=== PATIENT | male | born 1975 | race African-American/Black ===

== ENCOUNTER 2017-07-22 18:49 | Inpatient (IN) ==
[2017-07-22] MEDS ORDERED: MORPHINE 2 MG/1 ML SYRINGE IV STA (20:46)
[2017-07-22] MEDS ORDERED: hydrALAZINE 20 MG/1 ML VIAL IV STA (20:46)
[2017-07-22] MEDS ORDERED: NITROGLYCERIN 2% OINT 1 INCH/GM PACK TOP STA (20:46)
[2017-07-22] MEDS ORDERED: ONDANSETRON 4 MG/2 ML VIAL IV STA (20:46)
[2017-07-22] MEDS ORDERED: ALBUTEROL/IPRATROPIUM 3 ML NEB RESP TX STA (20:46)
[2017-07-22] MEDS ORDERED: ASPIRIN 325 MG TABLET PO STA (20:46)
[2017-07-22] MEDS ORDERED: FUROSEMIDE 100 MG/10 ML VIAL IV STA (20:46)
[2017-07-22] MEDS ORDERED: methylPREDNISolone SOD SUC 125 MG/2 ML VIAL IV STA (20:46)
[2017-07-22 20:55] LABS: Basophils % 0.2 % (0.0-0.8); Eosinophils # 0.1 10*3/uL (0.0-0.87); Eosinophils % 0.9 % (0.00-10.9); Hematocrit 40.3 VOL% (42.0-52.0); Hemoglobin 13.1 GM/DL (14.0-18.0); Immature Granulocytes % 0.4 %; Immature Granulocytes Absolute 0.04 #; Lymphocytes # 1.7 10*3/uL (1.4-4.0); Mean Corpuscular HGB Conc 32.5 GM/DL (32-36); Mean Corpuscular Hemoglobin 23 PG (27-34); Mean Corpuscular Volume 71.7 FL (87-102); Mean Platelet Volume 11.4 FL (9.6-12.0); Monocytes # 0.7 10*3/uL (0.11-0.8); Monocytes % 7.1 % (1.7-12.7); Neutrophils # 7.9 10*3/uL (1.4-7.4); Neutrophils % 75.4 % (38.7-73.9); Platelet Count 320 T/CUMM (130-400); Red Blood Count 5.62 MC/CUMM (3.8-5.5); Red Cell Distribution Width 15.3 % (9.3-17.3); White Blood Count 10.5 T/CUMM (4-12)
[2017-07-22] MEDS ORDERED: FUROSEMIDE 20 MG/2 ML VIAL ONE (21:01)
[2017-07-22] MEDS ORDERED: hydrALAZINE 20 MG/1 ML VIAL ONE (21:01)
[2017-07-22] MEDS ORDERED: FUROSEMIDE 40 MG/4 ML VIAL ONE (21:01)
[2017-07-22] MEDS ORDERED: MORPHINE 10 MG/1 ML VIAL ONE (21:01)
[2017-07-22] MEDS ORDERED: NITROGLYCERIN 2% OINT 1 INCH/GM PACK TOP ONE (21:01)
[2017-07-22] MEDS ORDERED: ONDANSETRON 4 MG/2 ML VIAL ONE (21:01)
[2017-07-22] MEDS ORDERED: methylPREDNISolone SOD SUC 125 MG/2 ML VIAL ONE (21:02)
[2017-07-22] MEDS ORDERED: ASPIRIN 325 MG TABLET ONE (21:02)
[2017-07-22 21:14] LABS: Albumin 3.1 G/DL (3.4-5.0); Bilirubin,Total 1.5 MG/DL (0.2-1.0); Calcium 8.9 MG/DL (8.5-10.1); Potassium 3.8 MMOL/L (3.5-5.1); Total Protein 6.1 G/DL (6.4-8.3)
[2017-07-22 21:15] LABS: Troponin I Only 0.049 NG/ML (0.00-0.045)
[2017-07-22] MEDS ORDERED: INSULIN REGULAR 100 UNIT/ML SUBCUT STA (21:41)
[2017-07-22] MEDS ORDERED: MAGNESIUM SULF RIDER 2 GM in PREMIX 1 EACH IV STA (22:02)
[2017-07-22] MEDS ORDERED: LABETALOL 100 MG/20 ML VIAL IV PRN (22:58)
[2017-07-22] MEDS ORDERED: DEXTROSE 50% 25 GM/50 ML VIAL IV PRN (22:58)
[2017-07-22] MEDS ORDERED: GLUCAGON 1 MG VIAL IM PRN (22:58)
[2017-07-22] MEDS ORDERED: ONDANSETRON 4 MG/2 ML VIAL IV PRN (22:58)
[2017-07-22] MEDS ORDERED: MAGNESIUM SULF RIDER 50 ML IV ONE (23:05)
[2017-07-22] MEDS ORDERED: INSULIN REGULAR 100 UNIT/ML ONE (23:06)
[2017-07-22] MEDS ORDERED: LABETALOL 20 MG/4 ML SYRINGE IV PRN (23:45)
[2017-07-23] MEDS: ENOXAPARIN 40 MG/0.4 ML SYRINGE SUBCUT SCH ×3 (00:55→21:26)
[2017-07-23] MEDS ORDERED: ENOXAPARIN 40 MG/0.4 ML SYRINGE ONE (00:58)
[2017-07-23] MEDS ORDERED: GLUCAGON 1 MG VIAL IM PRN (01:38)
[2017-07-23] MEDS ORDERED: DEXTROSE 50% 25 GM/50 ML VIAL IV PRN (01:38)
[2017-07-23] MEDS: NITROGLYCERIN 2% OINT 1 INCH/GM PACK TOP SCH ×5 (01:50→23:41)
[2017-07-23] MEDS ORDERED: INFLUENZA VIRUS VACCINE 0.5 ML SYRINGE IM ONE (02:56)
[2017-07-23] MEDS: INSULIN REGULAR 100 UNIT/ML SUBCUT SCH ×4 (07:44→21:26)
[2017-07-23] MEDS: FUROSEMIDE 40 MG/4 ML VIAL IV SCH ×2 (08:38→16:37)
[2017-07-23] MEDS: hydroCHLOROthiazide 25 MG TABLET PO SCH (08:39)
[2017-07-23] MEDS: ASPIRIN CHEW 81 MG TABLET PO SCH (08:39)
[2017-07-23] MEDS ORDERED: CARVEDILOL 6.25 MG TABLET PO SCH (09:00)
[2017-07-23] MEDS ORDERED: CARVEDILOL 3.125 MG TABLET PO SCH (09:00)
[2017-07-23] MEDS: PANTOPRAZOLE 40 MG TABLET PO SCH (11:23)
[2017-07-23] MEDS: LISINOPRIL 20 MG TABLET PO SCH (11:23)
[2017-07-23] MEDS: METOPROLOL TARTRATE 25 MG TABLET PO SCH ×2 (11:23→21:26)
[2017-07-23] MEDS: ALBUTEROL/IPRATROPIUM 3 ML NEB RESP TX SCH ×4 (11:48→23:00)
[2017-07-23] MEDS ORDERED: INSULIN GLARGINE 100 UNIT/ML SUBCUT SCH (21:00)
[2017-07-23] MEDS: amLODIPine 2.5 MG TABLET PO SCH (21:26)
[2017-07-24] MEDS: ZALEPLON 5 MG CAPSULE PO PRN (01:53)
[2017-07-24] MEDS: ALBUTEROL/IPRATROPIUM 3 ML NEB RESP TX SCH ×6 (03:10→23:54)
[2017-07-24 05:24] LABS: Basophils % 0.3 % (0.0-0.8); Eosinophils # 0.1 10*3/uL (0.0-0.87); Eosinophils % 0.4 % (0.00-10.9); Hematocrit 38.8 VOL% (42.0-52.0); Hemoglobin 12.2 GM/DL (14.0-18.0); Immature Granulocytes % 0.6 %; Immature Granulocytes Absolute 0.08 #; Lymphocytes % 21.9 % (21.2-54.2); Mean Corpuscular HGB Conc 31.4 GM/DL (32-36); Mean Corpuscular Hemoglobin 23 PG (27-34); Mean Corpuscular Volume 72.3 FL (87-102); Mean Platelet Volume 11.4 FL (9.6-12.0); Monocytes % 6.9 % (1.7-12.7); Neutrophils # 9.7 10*3/uL (1.4-7.4); Neutrophils % 69.9 % (38.7-73.9); Platelet Count 314 T/CUMM (130-400); Red Blood Count 5.37 MC/CUMM (3.8-5.5); Red Cell Distribution Width 15.3 % (9.3-17.3); White Blood Count 13.9 T/CUMM (4-12)
[2017-07-24 05:56] LABS: Calcium 8.4 MG/DL (8.5-10.1); Osmolality,Calculated 283.4 MOS/KG (273-304); Potassium 3.6 MMOL/L (3.5-5.1)
[2017-07-24 06:20] LABS: Risk Ratio 2.52; VLDL CHOLESTEROL 15.4 MG/DL
[2017-07-24] MEDS: NITROGLYCERIN 2% OINT 1 INCH/GM PACK TOP SCH ×3 (06:51→19:05)
[2017-07-24] MEDS: PANTOPRAZOLE 40 MG TABLET PO SCH (08:57)
[2017-07-24] MEDS: FUROSEMIDE 40 MG/4 ML VIAL IV SCH (08:57)
[2017-07-24] MEDS: LISINOPRIL 20 MG TABLET PO SCH (08:58)
[2017-07-24] MEDS: amLODIPine 2.5 MG TABLET PO SCH ×2 (08:58→21:35)
[2017-07-24] MEDS: METOPROLOL TARTRATE 25 MG TABLET PO SCH ×2 (08:58→21:36)
[2017-07-24] MEDS: hydroCHLOROthiazide 25 MG TABLET PO SCH (08:58)
[2017-07-24] MEDS: ASPIRIN CHEW 81 MG TABLET PO SCH (08:58)
[2017-07-24] MEDS ORDERED: MAGNESIUM SULF RIDER 2 GM in PREMIX 1 EACH IV PRN (09:19)
[2017-07-24] MEDS ORDERED: DIAZEPAM 5 MG TABLET PO ONE (09:19)
[2017-07-24] MEDS ORDERED: diphenhydrAMINE CAP 25 MG CAPSULE PO ONE (09:19)
[2017-07-24] MEDS ORDERED: POTASSIUM CHLORIDE RIDER 10 MEQ in PREMIX 1 EACH IV PRN (09:19)
[2017-07-24] MEDS ORDERED: LIDOCAINE 1% 20 ML VIAL ONE (09:29)
[2017-07-24] MEDS ORDERED: SODIUM CHLORIDE 0.45% 1,000 ML IV SCH (09:30)
[2017-07-24] MEDS ORDERED: diphenhydrAMINE CAP 50 MG CAPSULE ONE (09:34)
[2017-07-24] MEDS ORDERED: DIAZEPAM 5 MG TABLET ONE (09:36)
[2017-07-24] MEDS ORDERED: MEPERIDINE 25 MG/1 ML VIAL ONE ×2 (09:55→10:18)
[2017-07-24] MEDS ORDERED: MIDAZOLAM 2 MG/2 ML VIAL ONE (09:56)
[2017-07-24] MEDS ORDERED: ACETAMINOPHEN 325 MG TABLET PO PRN (11:08)
[2017-07-24] MEDS ORDERED: ACETAMINOPHEN/CODEINE 300-30 MG TABLET PO PRN (11:08)
[2017-07-24] MEDS: INSULIN REGULAR 100 UNIT/ML SUBCUT SCH ×4 (11:55→21:36)
[2017-07-24] MEDS ORDERED: INSULIN GLARGINE 100 UNIT/ML SUBCUT SCH (12:57)
[2017-07-24] MEDS: FUROSEMIDE 40 MG TABLET PO SCH (17:35)
[2017-07-25] MEDS: NITROGLYCERIN 2% OINT 1 INCH/GM PACK TOP SCH ×2 (00:50→10:00)
[2017-07-25 01:14] LABS: Apearance,Urine CLEAR (Clear); Bilirubin,Urine Negative (Negative); Blood, Urine Negative (Negative); Glucose,Urine (UA) >=500 mg/dL (Negative); Ketones,Urine Negative (Negative); Nitrite,Urine Negative (Negative); Protein,Urine Negative; RBC,Urine <1 /HPF (0-4); Urine Color Yellow (Yellow); Urine Specific Gravity 1.016 (1.001-1.035); Urine Urobilinogen < 2.0 EU/DL (0.2-1.0)
[2017-07-25 01:36] LABS: Barbiturates Screen,Urine Negative (Negative); Benzodiazepines Screen,Urine Positive (Negative); Cannabinoid Screen,Urine Negative (Negative); Opiate Screen,Urine Negative (Negative); Phencyclidine Screen,Urine Negative (Negative)
[2017-07-25] MEDS: ALBUTEROL/IPRATROPIUM 3 ML NEB RESP TX SCH ×5 (03:37→18:32)
[2017-07-25 05:11] LABS: Basophils % 0.3 % (0.0-0.8); Eosinophils # 0.1 10*3/uL (0.0-0.87); Eosinophils % 1.2 % (0.00-10.9); Hematocrit 40.6 VOL% (42.0-52.0); Hemoglobin 12.8 GM/DL (14.0-18.0); Immature Granulocytes % 0.6 %; Immature Granulocytes Absolute 0.06 #; Lymphocytes % 18.7 % (21.2-54.2); Mean Corpuscular HGB Conc 31.5 GM/DL (32-36); Mean Corpuscular Hemoglobin 23 PG (27-34); Mean Corpuscular Volume 72.1 FL (87-102); Mean Platelet Volume 11.5 FL (9.6-12.0); Monocytes # 0.9 10*3/uL (0.11-0.8); Monocytes % 8.3 % (1.7-12.7); Neutrophils # 7.7 10*3/uL (1.4-7.4); Neutrophils % 70.9 % (38.7-73.9); Platelet Count 340 T/CUMM (130-400); Red Blood Count 5.63 MC/CUMM (3.8-5.5); Red Cell Distribution Width 15.6 % (9.3-17.3); White Blood Count 10.8 T/CUMM (4-12)
[2017-07-25 05:50] LABS: Calcium 8.2 MG/DL (8.5-10.1); Osmolality,Calculated 285.1 MOS/KG (273-304); Potassium 3.7 MMOL/L (3.5-5.1)
[2017-07-25] MEDS: INSULIN REGULAR 100 UNIT/ML SUBCUT SCH ×4 (10:03→21:56)
[2017-07-25] MEDS: hydroCHLOROthiazide 25 MG TABLET PO SCH (10:04)
[2017-07-25] MEDS: amLODIPine 2.5 MG TABLET PO SCH (10:04)
[2017-07-25] MEDS: LISINOPRIL 20 MG TABLET PO SCH (10:04)
[2017-07-25] MEDS: METOPROLOL TARTRATE 25 MG TABLET PO SCH (10:04)
[2017-07-25] MEDS: PANTOPRAZOLE 40 MG TABLET PO SCH (10:04)
[2017-07-25] MEDS: FUROSEMIDE 40 MG TABLET PO SCH ×2 (10:05→16:54)
[2017-07-25] MEDS: ASPIRIN CHEW 81 MG TABLET PO SCH (10:05)
[2017-07-25] MEDS: INSULIN GLARGINE 100 UNIT/ML SUBCUT SCH (21:57)
[2017-07-25] MEDS: CARVEDILOL 12.5 MG TABLET PO SCH (21:57)
[2017-07-25] MEDS: ENOXAPARIN 40 MG/0.4 ML SYRINGE SUBCUT SCH (21:58)
[2017-07-26] MEDS: ALBUTEROL/IPRATROPIUM 3 ML NEB RESP TX SCH ×7 (00:20→22:56)
[2017-07-26] MEDS: ZALEPLON 5 MG CAPSULE PO PRN (00:43)
[2017-07-26 05:51] LABS: Basophils % 0.2 % (0.0-0.8); Eosinophils # 0.2 10*3/uL (0.0-0.87); Eosinophils % 1.6 % (0.00-10.9); Hematocrit 41.1 VOL% (42.0-52.0); Hemoglobin 13.1 GM/DL (14.0-18.0); Immature Granulocytes % 0.5 %; Immature Granulocytes Absolute 0.05 #; Lymphocytes # 1.7 10*3/uL (1.4-4.0); Lymphocytes % 18.5 % (21.2-54.2); Mean Corpuscular HGB Conc 31.9 GM/DL (32-36); Mean Corpuscular Hemoglobin 23 PG (27-34); Mean Corpuscular Volume 71.6 FL (87-102); Mean Platelet Volume 10.7 FL (9.6-12.0); Monocytes # 0.8 10*3/uL (0.11-0.8); Neutrophils # 6.4 10*3/uL (1.4-7.4); Neutrophils % 70.2 % (38.7-73.9); Platelet Count 333 T/CUMM (130-400); Red Blood Count 5.74 MC/CUMM (3.8-5.5); Red Cell Distribution Width 15.3 % (9.3-17.3); White Blood Count 9.2 T/CUMM (4-12)
[2017-07-26 06:21] LABS: Calcium 8.5 MG/DL (8.5-10.1); Osmolality,Calculated 279.7 MOS/KG (273-304); Potassium 3.8 MMOL/L (3.5-5.1)
[2017-07-26] MEDS: LISINOPRIL 20 MG TABLET PO SCH (08:30)
[2017-07-26] MEDS: FUROSEMIDE 40 MG TABLET PO SCH ×2 (08:30→16:36)
[2017-07-26] MEDS: hydroCHLOROthiazide 25 MG TABLET PO SCH (08:30)
[2017-07-26] MEDS: CARVEDILOL 12.5 MG TABLET PO SCH ×2 (08:30→23:21)
[2017-07-26] MEDS: ASPIRIN CHEW 81 MG TABLET PO SCH (08:31)
[2017-07-26] MEDS: PANTOPRAZOLE 40 MG TABLET PO SCH (08:31)
[2017-07-26] MEDS: INSULIN REGULAR 100 UNIT/ML SUBCUT SCH ×4 (08:49→23:20)
[2017-07-26] MEDS: SPIRONOLACTONE 25 MG TABLET PO SCH (13:42)
[2017-07-26] MEDS: INSULIN GLARGINE 100 UNIT/ML SUBCUT SCH (23:20)
[2017-07-26] MEDS: ENOXAPARIN 40 MG/0.4 ML SYRINGE SUBCUT SCH (23:20)
[2017-07-27] MEDS: ALBUTEROL/IPRATROPIUM 3 ML NEB RESP TX SCH ×3 (02:37→11:03)
[2017-07-27 05:24] LABS: Calcium 8.2 MG/DL (8.5-10.1); Osmolality,Calculated 280.2 MOS/KG (273-304); Potassium 4.4 MMOL/L (3.5-5.1)
[2017-07-27 05:41] LABS: Basophils # 0.1 10*3/uL (0.0-0.2); Basophils % 0.6 % (0.0-0.8); Eosinophils # 0.2 10*3/uL (0.0-0.87); Eosinophils % 2.3 % (0.00-10.9); Hematocrit 47.2 VOL% (42.0-52.0); Hemoglobin 13.8 GM/DL (14.0-18.0); Immature Granulocytes % 0.6 %; Immature Granulocytes Absolute 0.05 #; Lymphocytes # 1.6 10*3/uL (1.4-4.0); Lymphocytes % 19.3 % (21.2-54.2); Mean Corpuscular HGB Conc 29.2 GM/DL (32-36); Mean Corpuscular Hemoglobin 23 PG (27-34); Mean Corpuscular Volume 78.8 FL (87-102); Mean Platelet Volume 10.7 FL (9.6-12.0); Monocytes # 0.7 10*3/uL (0.11-0.8); Monocytes % 8.9 % (1.7-12.7); NRBC # 0.07 10*3/uL; Neutrophils # 5.7 10*3/uL (1.4-7.4); Neutrophils % 68.3 % (38.7-73.9); Platelet Count 313 T/CUMM (130-400); Red Blood Count 5.99 MC/CUMM (3.8-5.5); White Blood Count 8.3 T/CUMM (4-12)
[2017-07-27 08:27] VITALS: BP 141/99
[2017-07-27] MEDS: INSULIN REGULAR 100 UNIT/ML SUBCUT SCH ×2 (08:31→13:07)
[2017-07-27] MEDS: hydroCHLOROthiazide 25 MG TABLET PO SCH (08:32)
[2017-07-27] MEDS: LISINOPRIL 20 MG TABLET PO SCH (08:32)
[2017-07-27] MEDS: ASPIRIN CHEW 81 MG TABLET PO SCH (08:33)
[2017-07-27] MEDS: SPIRONOLACTONE 25 MG TABLET PO SCH (08:33)
[2017-07-27] MEDS: PANTOPRAZOLE 40 MG TABLET PO SCH (08:33)
[2017-07-27] MEDS: CARVEDILOL 12.5 MG TABLET PO SCH (08:33)
[2017-07-27] MEDS: FUROSEMIDE 40 MG TABLET PO SCH (08:33)
== END 2017-07-27 13:55 | disposition home or self-care (01) | DRG 287 ==
LOC: N.ED 18:49 → N.EDINP 22:58 → SUATTDRO 22:59 → N.TELES 23:24
PROVIDERS: ADMIT Internal Medicine
PROC: CLCCHCL (ICD-10-PCS; 2017-07-24 10:15)

== ENCOUNTER 2017-11-19 08:48 | Inpatient (IN) ==
[2017-11-19 09:24] LABS: Basophils % 0.3 % (0.0-0.8); Eosinophils # 0.2 10*3/uL (0.0-0.87); Eosinophils % 1.6 % (0.00-10.9); Hematocrit 38.4 VOL% (42.0-52.0); Hemoglobin 12.3 GM/DL (14.0-18.0); Immature Granulocytes % 0.5 %; Immature Granulocytes Absolute 0.05 #; Lymphocytes # 1.1 10*3/uL (1.4-4.0); Lymphocytes % 10.1 % (21.2-54.2); Mean Corpuscular Hemoglobin 25 PG (27-34); Mean Corpuscular Volume 76.6 FL (87-102); Mean Platelet Volume 10.5 FL (9.6-12.0); Monocytes # 0.8 10*3/uL (0.11-0.8); Monocytes % 7.5 % (1.7-12.7); Neutrophils # 8.7 10*3/uL (1.4-7.4); Platelet Count 298 T/CUMM (130-400); Red Blood Count 5.01 MC/CUMM (3.8-5.5); Red Cell Distribution Width 15.8 % (9.3-17.3); White Blood Count 10.9 T/CUMM (4-12)
[2017-11-19 09:32] LABS: PT Patient Result 10.7 SECS; Partial Thromboplastin Time 25.7 SECS (0-40)
[2017-11-19] MEDS ORDERED: ENOXAPARIN 100 MG/ML SYRINGE SUBCUT STA (09:46)
[2017-11-19] MEDS ORDERED: ASPIRIN 325 MG TABLET PO STA (09:46)
[2017-11-19] MEDS: NITROGLYCERIN SL 0.4 MG TABLET SL PRN ×2 (10:03→10:46)
[2017-11-19 10:23] LABS: Albumin 3.1 G/DL (3.4-5.0); Bilirubin,Total 0.9 MG/DL (0.2-1.0); Calcium 8.5 MG/DL (8.5-10.1); Osmolality,Calculated 289.5 MOS/KG (273-304); Potassium 3.4 MMOL/L (3.5-5.1); Total Protein 6.1 G/DL (6.4-8.3)
[2017-11-19] MEDS ORDERED: ALBUTEROL/IPRATROPIUM 3 ML NEB RESP TX STA (10:34)
[2017-11-19] MEDS ORDERED: FUROSEMIDE 40 MG/4 ML VIAL IV STA (10:35)
[2017-11-19] MEDS ORDERED: ALUM/MAG/SIMETH/LIDO VISC 1:1 30 ML BOTTLE PO ONE (11:10)
[2017-11-19] MEDS ORDERED: ALUM/MAG/SIMETH/LIDO VISC 1:1 30 ML BOTTLE PO STA (11:10)
[2017-11-19] MEDS ORDERED: MAGNESIUM SULF RIDER 4 GM in PREMIX 1 EACH IV PRN (13:10)
[2017-11-19] MEDS ORDERED: POTASSIUM CHLORIDE RIDER 10 MEQ in PREMIX 1 EACH IV PRN (13:10)
[2017-11-19] MEDS ORDERED: MAGNESIUM SULF RIDER 2 GM in PREMIX 1 EACH IV PRN (13:10)
[2017-11-19] MEDS ORDERED: ACETAMINOPHEN 325 MG TABLET PO PRN (13:13)
[2017-11-19] MEDS ORDERED: ZALEPLON 5 MG CAPSULE PO PRN (13:13)
[2017-11-19] MEDS ORDERED: DEXTROSE 50% 25 GM/50 ML VIAL IV PRN ×2 (13:28→13:29)
[2017-11-19] MEDS ORDERED: GLUCAGON 1 MG VIAL IM PRN ×2 (13:28→13:29)
[2017-11-19 13:45] LABS: Risk Ratio 2.49; VLDL CHOLESTEROL 22.6 MG/DL
[2017-11-19] MEDS ORDERED: predniSONE 10 MG TABLET PO SCH (16:30)
[2017-11-19] MEDS: FUROSEMIDE 40 MG/4 ML VIAL IV SCH (16:30)
[2017-11-19] MEDS: hydrALAZINE 25 MG TABLET PO SCH ×2 (16:32→21:50)
[2017-11-19] MEDS: ALBUTEROL/IPRATROPIUM 3 ML NEB RESP TX SCH (19:18)
[2017-11-19] MEDS ORDERED: ENOXAPARIN 40 MG/0.4 ML SYRINGE SUBCUT SCH (21:00)
[2017-11-19] MEDS ORDERED: INSULIN GLARGINE 100 UNIT/ML SUBCUT SCH (21:00)
[2017-11-19] MEDS: FAMOTIDINE 20 MG TABLET PO SCH (21:50)
[2017-11-19] MEDS: CARVEDILOL 3.125 MG TABLET PO SCH (21:50)
[2017-11-19] MEDS: INSULIN REGULAR 100 UNIT/ML SUBCUT SCH (21:51)
[2017-11-20] MEDS: ALBUTEROL/IPRATROPIUM 3 ML NEB RESP TX SCH ×3 (00:31→13:05)
[2017-11-20 06:06] LABS: Basophils % 0.2 % (0.0-0.8); Eosinophils % 0.1 % (0.00-10.9); Hematocrit 43.2 VOL% (42.0-52.0); Hemoglobin 13.4 GM/DL (14.0-18.0); Immature Granulocytes % 0.4 %; Immature Granulocytes Absolute 0.05 #; Lymphocytes % 8.5 % (21.2-54.2); Mean Corpuscular Hemoglobin 24 PG (27-34); Mean Corpuscular Volume 76.7 FL (87-102); Mean Platelet Volume 10.8 FL (9.6-12.0); Monocytes # 0.6 10*3/uL (0.11-0.8); Monocytes % 5.1 % (1.7-12.7); Neutrophils # 10.3 10*3/uL (1.4-7.4); Neutrophils % 85.7 % (38.7-73.9); Platelet Count 303 T/CUMM (130-400); Red Blood Count 5.63 MC/CUMM (3.8-5.5); Red Cell Distribution Width 15.9 % (9.3-17.3)
[2017-11-20] MEDS ORDERED: ASPIRIN EC 81 MG TABLET PO SCH (09:00)
[2017-11-20] MEDS ORDERED: LOSARTAN 25 MG TABLET PO SCH ×2 (09:00)
[2017-11-20] MEDS ORDERED: predniSONE 20 MG TABLET ONE (09:53)
[2017-11-20] MEDS ORDERED: predniSONE 5 MG TABLET ONE (09:53)
[2017-11-20 10:28] LABS: Calcium 8.9 MG/DL (8.5-10.1); Osmolality,Calculated 284.5 MOS/KG (273-304); Potassium 2.7 MMOL/L (3.5-5.1)
[2017-11-20] MEDS: FAMOTIDINE 20 MG TABLET PO SCH (11:23)
[2017-11-20] MEDS: CARVEDILOL 3.125 MG TABLET PO SCH (11:24)
[2017-11-20] MEDS: hydrALAZINE 25 MG TABLET PO SCH (11:24)
[2017-11-20] MEDS: FUROSEMIDE 40 MG/4 ML VIAL IV SCH (11:25)
[2017-11-20] MEDS: INSULIN REGULAR 100 UNIT/ML SUBCUT SCH (11:28)
[2017-11-20 14:25] VITALS: BP 156/78
[2017-11-20 15:52] LABS: Barbiturates Screen,Urine Negative (Negative); Benzodiazepines Screen,Urine Negative (Negative); Cannabinoid Screen,Urine Negative (Negative); Opiate Screen,Urine Negative (Negative); Phencyclidine Screen,Urine Negative (Negative)
== END 2017-11-20 14:12 | disposition home or self-care (01) | DRG 293 ==
LOC: N.ED 08:48 → SUATTDRO 13:09 → N.EDINP 13:09 → N.TELES 13:19
PROVIDERS: ADMIT Internal Medicine; ATTEND Internal Medicine Cardiovascular Disease

== ENCOUNTER 2017-11-30 03:48 | Observation (INO) ==
[2017-11-30] MEDS ORDERED: CHARCOAL AQUEOUS 25 GM/120 ML BOTTLE PO STA (04:35)
[2017-11-30 04:49] LABS: Basophils % 0.2 % (0.0-0.8); Eosinophils # 0.1 10*3/uL (0.0-0.87); Eosinophils % 0.6 % (0.00-10.9); Hemoglobin 12.5 GM/DL (14.0-18.0); Immature Granulocytes % 0.5 %; Immature Granulocytes Absolute 0.05 #; Lymphocytes # 1.7 10*3/uL (1.4-4.0); Mean Corpuscular HGB Conc 32.1 GM/DL (32-36); Mean Corpuscular Hemoglobin 25 PG (27-34); Mean Corpuscular Volume 77.1 FL (87-102); Mean Platelet Volume 10.8 FL (9.6-12.0); Monocytes # 0.8 10*3/uL (0.11-0.8); Monocytes % 7.6 % (1.7-12.7); Neutrophils # 8.4 10*3/uL (1.4-7.4); Neutrophils % 76.1 % (38.7-73.9); Platelet Count 300 T/CUMM (130-400); Red Blood Count 5.06 MC/CUMM (3.8-5.5); Red Cell Distribution Width 15.5 % (9.3-17.3)
[2017-11-30 05:11] LABS: Alanine Aminotransferase 23 U/L (16-61); Albumin 3.5 G/DL (3.4-5.0); Alkaline Phosphatase 76 U/L (45-117); Aspartate Amino Transferase 24 U/L (0-37); Blood Urea Nitrogen 14 MG/DL (7-18); Calcium 8.6 MG/DL (8.5-10.1); Glucose 186 MG/DL (74-106); Osmolality,Calculated 280.7 MOS/KG (273-304); Potassium 3.2 MMOL/L (3.5-5.1); Sodium 138 MMOL/L (136-145); Total Protein 7.4 G/DL (6.4-8.3)
[2017-11-30] MEDS ORDERED: ONDANSETRON 4 MG/2 ML VIAL IV PRN (06:02)
[2017-11-30] MEDS ORDERED: DEXTROSE 50% 25 GM/50 ML VIAL IV PRN (06:02)
[2017-11-30] MEDS ORDERED: GLUCAGON 1 MG VIAL IM PRN (06:02)
[2017-11-30] MEDS ORDERED: POTASSIUM CHLORIDE 20 MEQ TABLET PO ONE (06:30)
[2017-11-30 06:51] LABS: Thyroid Stimulating Hormone 1.04 uIU/ml (0.358-3.74)
[2017-11-30] MEDS: LOSARTAN 50 MG TABLET PO SCH ×2 (10:22→20:45)
[2017-11-30] MEDS: INSULIN LISPRO 100 UNIT/ML SUBCUT SCH ×4 (10:23→20:45)
[2017-11-30] MEDS: FUROSEMIDE 40 MG TABLET PO SCH ×2 (10:23→15:03)
[2017-11-30] MEDS: ASPIRIN EC 81 MG TABLET PO SCH (10:23)
[2017-11-30] MEDS: NICOTINE 21 MG/24 HR PATCH TRANSDERM SCH (10:23)
[2017-11-30] MEDS: ENOXAPARIN 40 MG/0.4 ML SYRINGE SUBCUT SCH (10:23)
[2017-11-30] MEDS: metFORMIN 500 MG TABLET PO SCH ×2 (10:33→16:51)
[2017-11-30] MEDS ORDERED: MAGNESIUM SULF RIDER 2 GM in PREMIX 1 EACH IV PRN (11:52)
[2017-11-30] MEDS ORDERED: MAGNESIUM SULF RIDER 4 GM in PREMIX 1 EACH IV PRN (11:52)
[2017-11-30 19:23] LABS: Apearance,Urine Slightly Hazy (Clear); Bilirubin,Urine Negative (Negative); Blood, Urine Negative (Negative); Glucose,Urine (UA) 50 mg/dL (Negative); Ketones,Urine Negative (Negative); Nitrite,Urine Negative (Negative); Protein,Urine Negative; RBC,Urine 1 /HPF (0-4); Urine Color Yellow (Yellow); Urine Specific Gravity 1.013 (1.001-1.035); Urine Urobilinogen < 2.0 EU/DL (0.2-1.0); WBC,Urine <1 /HPF (0-6)
[2017-11-30 20:57] LABS: Barbiturates Screen,Urine Negative (Negative); Benzodiazepines Screen,Urine Negative (Negative); Cannabinoid Screen,Urine Negative (Negative); Opiate Screen,Urine Negative (Negative); Phencyclidine Screen,Urine Negative (Negative)
[2017-11-30] MEDS ORDERED: diphenhydrAMINE CAP 25 MG CAPSULE PO ONE (23:00)
[2017-12-01 06:44] LABS: Basophils % 0.4 % (0.0-0.8); Eosinophils # 0.1 10*3/uL (0.0-0.87); Eosinophils % 1.5 % (0.00-10.9); Hematocrit 38.9 VOL% (42.0-52.0); Hemoglobin 12.3 GM/DL (14.0-18.0); Immature Granulocytes % 0.5 %; Immature Granulocytes Absolute 0.04 #; Lymphocytes # 1.9 10*3/uL (1.4-4.0); Lymphocytes % 22.9 % (21.2-54.2); Mean Corpuscular HGB Conc 31.6 GM/DL (32-36); Mean Corpuscular Hemoglobin 25 PG (27-34); Mean Corpuscular Volume 77.3 FL (87-102); Mean Platelet Volume 11.6 FL (9.6-12.0); Monocytes # 0.7 10*3/uL (0.11-0.8); Monocytes % 8.9 % (1.7-12.7); Neutrophils # 5.3 10*3/uL (1.4-7.4); Neutrophils % 65.8 % (38.7-73.9); Platelet Count 295 T/CUMM (130-400); Red Blood Count 5.03 MC/CUMM (3.8-5.5); Red Cell Distribution Width 15.7 % (9.3-17.3); White Blood Count 8.1 T/CUMM (4-12)
[2017-12-01 07:23] LABS: Albumin 3.2 G/DL (3.4-5.0); Bilirubin,Total 0.6 MG/DL (0.2-1.0); Calcium 8.5 MG/DL (8.5-10.1); Osmolality,Calculated 286.3 MOS/KG (273-304); Potassium 3.8 MMOL/L (3.5-5.1); Total Protein 6.6 G/DL (6.4-8.3)
[2017-12-01] MEDS: LOSARTAN 50 MG TABLET PO SCH ×2 (09:29→21:19)
[2017-12-01] MEDS: metFORMIN 500 MG TABLET PO SCH ×2 (09:29→17:23)
[2017-12-01] MEDS: FUROSEMIDE 40 MG TABLET PO SCH ×2 (09:30→17:23)
[2017-12-01] MEDS: ENOXAPARIN 40 MG/0.4 ML SYRINGE SUBCUT SCH (09:30)
[2017-12-01] MEDS: ASPIRIN EC 81 MG TABLET PO SCH (09:30)
[2017-12-01] MEDS: CARVEDILOL 3.125 MG TABLET PO SCH ×2 (09:30→17:23)
[2017-12-01] MEDS: NICOTINE 21 MG/24 HR PATCH TRANSDERM SCH (09:30)
[2017-12-01] MEDS: INSULIN LISPRO 100 UNIT/ML SUBCUT SCH ×4 (10:21→21:19)
[2017-12-01] MEDS ORDERED: ALBUTEROL/IPRATROPIUM 3 ML NEB RESP TX PRN (20:22)
[2017-12-01] MEDS: diphenhydrAMINE CAP 25 MG CAPSULE PO PRN (21:19)
[2017-12-02] MEDS: ASPIRIN EC 81 MG TABLET PO SCH (09:10)
[2017-12-02] MEDS: metFORMIN 500 MG TABLET PO SCH ×2 (09:10→17:57)
[2017-12-02] MEDS: LOSARTAN 50 MG TABLET PO SCH ×2 (09:10→21:41)
[2017-12-02] MEDS: NICOTINE 21 MG/24 HR PATCH TRANSDERM SCH (09:11)
[2017-12-02] MEDS: ENOXAPARIN 40 MG/0.4 ML SYRINGE SUBCUT SCH (09:11)
[2017-12-02] MEDS: INSULIN LISPRO 100 UNIT/ML SUBCUT SCH ×3 (09:11→17:49)
[2017-12-02] MEDS: FUROSEMIDE 40 MG TABLET PO SCH ×2 (09:11→17:54)
[2017-12-02] MEDS: CARVEDILOL 3.125 MG TABLET PO SCH ×2 (09:11→17:55)
[2017-12-02] MEDS: glyBURIDE 5 MG TABLET PO SCH (09:13)
[2017-12-02] MEDS: diphenhydrAMINE CAP 25 MG CAPSULE PO PRN (21:42)
[2017-12-03] MEDS: INSULIN LISPRO 100 UNIT/ML SUBCUT SCH ×5 (01:47→21:09)
[2017-12-03] MEDS: glyBURIDE 5 MG TABLET PO SCH (08:26)
[2017-12-03] MEDS: ASPIRIN EC 81 MG TABLET PO SCH (08:26)
[2017-12-03] MEDS: CARVEDILOL 3.125 MG TABLET PO SCH ×2 (08:26→16:42)
[2017-12-03] MEDS: LOSARTAN 50 MG TABLET PO SCH ×2 (08:26→21:07)
[2017-12-03] MEDS: metFORMIN 500 MG TABLET PO SCH ×2 (08:26→16:42)
[2017-12-03] MEDS: FUROSEMIDE 40 MG TABLET PO SCH ×2 (08:26→16:42)
[2017-12-03] MEDS: ENOXAPARIN 40 MG/0.4 ML SYRINGE SUBCUT SCH (08:27)
[2017-12-03] MEDS: NICOTINE 21 MG/24 HR PATCH TRANSDERM SCH (08:27)
[2017-12-03] MEDS: ACETAMINOPHEN 325 MG TABLET PO PRN (14:45)
[2017-12-03] MEDS: diphenhydrAMINE CAP 25 MG CAPSULE PO PRN (21:07)
[2017-12-04] MEDS: INSULIN LISPRO 100 UNIT/ML SUBCUT SCH ×2 (08:17→12:31)
[2017-12-04] MEDS: metFORMIN 500 MG TABLET PO SCH (08:17)
[2017-12-04] MEDS: LOSARTAN 50 MG TABLET PO SCH (08:17)
[2017-12-04] MEDS: glyBURIDE 5 MG TABLET PO SCH (08:17)
[2017-12-04] MEDS: ASPIRIN EC 81 MG TABLET PO SCH (08:18)
[2017-12-04] MEDS: NICOTINE 21 MG/24 HR PATCH TRANSDERM SCH (08:18)
[2017-12-04] MEDS: CARVEDILOL 3.125 MG TABLET PO SCH (08:18)
[2017-12-04] MEDS: ENOXAPARIN 40 MG/0.4 ML SYRINGE SUBCUT SCH (08:18)
[2017-12-04] MEDS: FUROSEMIDE 40 MG TABLET PO SCH (08:18)
[2017-12-04] MEDS: ACETAMINOPHEN 325 MG TABLET PO PRN (08:27)
[2017-12-04 12:25] VITALS: BP 155/109
== END 2017-12-04 14:10 ==
LOC: N.EDINP 03:48 → N.ED 03:48 → SUATTDRO 06:00 → N.4E 06:26
PROVIDERS: ADMIT Internal Medicine; ATTEND Internal Medicine

== ENCOUNTER 2018-03-15 03:34 | Inpatient (IN) ==
[2018-03-15] MEDS ORDERED: methylPREDNISolone SOD SUC 125 MG/2 ML VIAL IV STA (04:12)
[2018-03-15] MEDS ORDERED: ASPIRIN 325 MG TABLET PO STA (04:12)
[2018-03-15] MEDS ORDERED: FUROSEMIDE 100 MG/10 ML VIAL IV STA (04:12)
[2018-03-15] MEDS ORDERED: ONDANSETRON 4 MG/2 ML VIAL IV STA (04:12)
[2018-03-15] MEDS ORDERED: NITROGLYCERIN 2% OINT 1 INCH/GM PACK TOP STA (04:12)
[2018-03-15] MEDS ORDERED: MORPHINE 4 MG/1 ML VIAL IV STA (04:12)
[2018-03-15] MEDS ORDERED: ALBUTEROL 2.5 MG/3 ML NEB RESP TX SCH (04:30)
[2018-03-15] MEDS ORDERED: hydrALAZINE 20 MG/1 ML VIAL IV STA ×2 (04:37→05:28)
[2018-03-15 04:40] LABS: ABG Base Excess -1.4 MMOL/L (-2.5-2.5); ABG HCO3 23.2 MMOL/L (20-26); ABG Oxygen Saturation 92.6 % (95-100); ABG PCO2 33.6 MM HG (35-48); ABG PH 7.429 (7.35-7.45); ABG PO2 67.8 MM HG (80-95); ABG TCO2 19.7 MMOL/L (23-27); Allen Test Positive; Pt O2 Delivery Device Room Air
[2018-03-15 04:43] LABS: Basophils % 0.2 % (0.0-0.8); Eosinophils # 0.1 10*3/uL (0.0-0.87); Eosinophils % 0.6 % (0.00-10.9); Hematocrit 40.3 VOL% (42.0-52.0); Hemoglobin 12.5 GM/DL (14.0-18.0); Immature Granulocytes % 0.4 %; Immature Granulocytes Absolute 0.05 #; Lymphocytes # 1.7 10*3/uL (1.4-4.0); Lymphocytes % 13.3 % (21.2-54.2); Mean Corpuscular Hemoglobin 24 PG (27-34); Mean Corpuscular Volume 76.2 FL (87-102); Mean Platelet Volume 10.8 FL (9.6-12.0); Monocytes # 0.8 10*3/uL (0.11-0.8); Monocytes % 6.4 % (1.7-12.7); Neutrophils # 10.1 10*3/uL (1.4-7.4); Neutrophils % 79.1 % (38.7-73.9); Platelet Count 361 T/CUMM (130-400); Red Blood Count 5.29 MC/CUMM (3.8-5.5); Red Cell Distribution Width 14.9 % (9.3-17.3); White Blood Count 12.7 T/CUMM (4-12)
[2018-03-15 05:03] LABS: INR 1.1; PT Patient Result 11.4 SECS
[2018-03-15 05:05] LABS: Albumin 3.1 G/DL (3.4-5.0); Bilirubin,Total 1.5 MG/DL (0.2-1.0); Calcium 8.4 MG/DL (8.5-10.1); Osmolality,Calculated 289.1 MOS/KG (273-304); Potassium 3.9 MMOL/L (3.5-5.1); Total Protein 6.6 G/DL (6.4-8.3)
[2018-03-15] MEDS ORDERED: INSULIN REGULAR 100 UNIT/ML SUBCUT STA (05:10)
[2018-03-15] MEDS ORDERED: ENOXAPARIN 100 MG/ML SYRINGE SUBCUT STA (05:11)
[2018-03-15 05:20] LABS: Apearance,Urine CLEAR (Clear); Bilirubin,Urine Negative (Negative); Blood, Urine Negative (Negative); Glucose,Urine (UA) >=500 mg/dL (Negative); Ketones,Urine Negative (Negative); Nitrite,Urine Negative (Negative); Protein,Urine 100 MG/DL; Urine Color Yellow (Yellow); Urine Specific Gravity 1.024 (1.001-1.035); WBC,Urine <1 /HPF (0-6)
[2018-03-15 05:28] LABS: Barbiturates Screen,Urine Negative (Negative); Benzodiazepines Screen,Urine Negative (Negative); Cannabinoid Screen,Urine Negative (Negative); Opiate Screen,Urine Negative (Negative); Phencyclidine Screen,Urine Negative (Negative)
[2018-03-15] MEDS ORDERED: METOPROLOL TARTRATE 5 MG/5 ML VIAL IV STA (06:19)
[2018-03-15] MEDS ORDERED: ALBUTEROL/IPRATROPIUM 3 ML NEB RESP TX PRN (06:40)
[2018-03-15] MEDS ORDERED: GLUCAGON 1 MG VIAL IM PRN (06:43)
[2018-03-15] MEDS ORDERED: DEXTROSE 50% 25 GM/50 ML VIAL IV PRN (06:43)
[2018-03-15] MEDS ORDERED: ONDANSETRON 4 MG/2 ML VIAL IV PRN (06:46)
[2018-03-15] MEDS ORDERED: PNEUMOCOCCAL VACCINE (23 VALENT) 0.5 ML VIAL IM ONE (08:01)
[2018-03-15] MEDS: ENOXAPARIN 40 MG/0.4 ML SYRINGE SUBCUT SCH (08:24)
[2018-03-15] MEDS: FUROSEMIDE 40 MG/4 ML VIAL IV SCH ×2 (08:24→17:13)
[2018-03-15] MEDS: ASPIRIN EC 81 MG TABLET PO SCH (08:44)
[2018-03-15 09:45] LABS: HIV Antigen/Antibody Result Nonreactive (Nonreactive); Hepatitis C Virus Ab Quant 4.38 Index
[2018-03-15] MEDS: PANTOPRAZOLE 40 MG TABLET PO SCH (10:17)
[2018-03-15] MEDS: hydrALAZINE 25 MG TABLET PO SCH ×3 (10:17→20:29)
[2018-03-15] MEDS: CARVEDILOL 3.125 MG TABLET PO SCH ×2 (10:17→20:29)
[2018-03-15] MEDS: INSULIN REGULAR 100 UNIT/ML SUBCUT SCH ×4 (10:17→20:31)
[2018-03-15 13:27] LABS: Troponin I 0.036 NG/ML (0.00-0.045)
[2018-03-15] MEDS ORDERED: ACETAMINOPHEN 500 MG TABLET PO PRN (17:27)
[2018-03-15] MEDS ORDERED: INSULIN GLARGINE 100 UNIT/ML SUBCUT SCH ×2 (21:00)
[2018-03-16 02:50] LABS: Basophils % 0.2 % (0.0-0.8); Eosinophils % 0.2 % (0.00-10.9); Hematocrit 36.5 VOL% (42.0-52.0); Hemoglobin 11.5 GM/DL (14.0-18.0); Immature Granulocytes % 0.4 %; Immature Granulocytes Absolute 0.08 #; Lymphocytes # 1.8 10*3/uL (1.4-4.0); Mean Corpuscular HGB Conc 31.5 GM/DL (32-36); Mean Corpuscular Hemoglobin 24 PG (27-34); Mean Corpuscular Volume 75.1 FL (87-102); Mean Platelet Volume 10.3 FL (9.6-12.0); Monocytes # 1.6 10*3/uL (0.11-0.8); Monocytes % 8.6 % (1.7-12.7); Neutrophils # 14.8 10*3/uL (1.4-7.4); Neutrophils % 80.6 % (38.7-73.9); Platelet Count 357 T/CUMM (130-400); Red Blood Count 4.86 MC/CUMM (3.8-5.5); Red Cell Distribution Width 15.1 % (9.3-17.3); White Blood Count 18.3 T/CUMM (4-12)
[2018-03-16 03:17] LABS: Calcium 8.7 MG/DL (8.5-10.1); Potassium 3.7 MMOL/L (3.5-5.1)
[2018-03-16] MEDS: ENOXAPARIN 40 MG/0.4 ML SYRINGE SUBCUT SCH (06:45)
[2018-03-16] MEDS: hydrALAZINE 25 MG TABLET PO SCH (09:41)
[2018-03-16] MEDS: PANTOPRAZOLE 40 MG TABLET PO SCH (09:41)
[2018-03-16] MEDS: ASPIRIN EC 81 MG TABLET PO SCH (09:41)
[2018-03-16] MEDS: INSULIN REGULAR 100 UNIT/ML SUBCUT SCH ×2 (09:42→12:34)
[2018-03-16] MEDS: CARVEDILOL 3.125 MG TABLET PO SCH (09:42)
[2018-03-16] MEDS: FUROSEMIDE 40 MG/4 ML VIAL IV SCH (09:43)
[2018-03-16 12:01] VITALS: BP 141/95
== END 2018-03-16 15:00 | disposition home or self-care (01) | DRG 293 ==
LOC: N.ED 03:34 → N.EDINP 05:57 → N.CC 06:38 → N.TELES 22:06
PROVIDERS: ADMIT Internal Medicine Geriatric Medicine; ATTEND Internal Medicine Geriatric Medicine

== ENCOUNTER 2018-04-30 05:39 | Inpatient (IN) ==
[2018-04-30] MEDS ORDERED: ALBUTEROL 2.5 MG/3 ML NEB RESP TX STA (06:07)
[2018-04-30] MEDS ORDERED: FUROSEMIDE 100 MG/10 ML VIAL IV STA (06:07)
[2018-04-30] MEDS ORDERED: hydrALAZINE 20 MG/1 ML VIAL IV STA (06:08)
[2018-04-30 06:24] LABS: Basophils % 0.2 % (0.0-0.8); Eosinophils # 0.1 10*3/uL (0.0-0.87); Eosinophils % 0.7 % (0.00-10.9); Hemoglobin 11.8 GM/DL (14.0-18.0); Immature Granulocytes % 0.5 %; Immature Granulocytes Absolute 0.05 #; Lymphocytes # 0.7 10*3/uL (1.4-4.0); Lymphocytes % 7.6 % (21.2-54.2); Mean Corpuscular HGB Conc 31.1 GM/DL (32-36); Mean Corpuscular Hemoglobin 22 PG (27-34); Mean Corpuscular Volume 71.2 FL (87-102); Mean Platelet Volume 10.5 FL (9.6-12.0); Monocytes % 10.6 % (1.7-12.7); Neutrophils # 7.5 10*3/uL (1.4-7.4); Neutrophils % 80.4 % (38.7-73.9); Platelet Count 287 T/CUMM (130-400); Red Blood Count 5.34 MC/CUMM (3.8-5.5); White Blood Count 9.3 T/CUMM (4-12)
[2018-04-30 06:45] LABS: Bilirubin,Total 0.9 MG/DL (0.2-1.0); Calcium 8.8 MG/DL (8.5-10.1); Osmolality,Calculated 281.8 MOS/KG (273-304); Potassium 3.9 MMOL/L (3.5-5.1); Total Protein 6.5 G/DL (6.4-8.3)
[2018-04-30] MEDS ORDERED: INSULIN LISPRO 100 UNIT/ML SUBCUT STA (07:12)
[2018-04-30] MEDS ORDERED: PROMETHAZINE 25 MG/1 ML VIAL IM PRN (09:05)
[2018-04-30] MEDS ORDERED: ONDANSETRON 4 MG/2 ML VIAL IV PRN (09:05)
[2018-04-30] MEDS ORDERED: ACETAMINOPHEN 325 MG TABLET PO PRN (09:05)
[2018-04-30] MEDS ORDERED: GLUCAGON 1 MG VIAL IM PRN (09:05)
[2018-04-30] MEDS ORDERED: DEXTROSE 50% 25 GM/50 ML VIAL IV PRN (09:05)
[2018-04-30] MEDS ORDERED: INSULIN GLARGINE 100 UNIT/ML SUBCUT ONE (09:18)
[2018-04-30 09:35] LABS: Thyroid Stimulating Hormone 0.404 uIU/ml (0.358-3.74)
[2018-04-30 09:38] LABS: % Iron Saturation 12.5 % (18-50); Ferritin 39.5 ng/ml (26-388)
[2018-04-30] MEDS ORDERED: INFLUENZA VIRUS VACCINE 0.5 ML SYRINGE IM ONE (10:31)
[2018-04-30] MEDS ORDERED: PNEUMOCOCCAL VACCINE (23 VALENT) 0.5 ML VIAL IM ONE (10:33)
[2018-04-30] MEDS: INSULIN REGULAR 100 UNIT/ML SUBCUT SCH ×3 (11:00→21:10)
[2018-04-30] MEDS: sitaGLIPtin 25 MG TABLET PO SCH (11:01)
[2018-04-30] MEDS: PANTOPRAZOLE 40 MG TABLET PO SCH (11:01)
[2018-04-30 11:16] LABS: Apearance,Urine CLEAR (Clear); Bilirubin,Urine Negative (Negative); Blood, Urine Negative (Negative); Glucose,Urine (UA) >=500 mg/dL (Negative); Ketones,Urine Negative (Negative); Nitrite,Urine Negative (Negative); Protein,Urine Negative; Urine Color Straw (Yellow); Urine Specific Gravity 1.024 (1.001-1.035); Urine Urobilinogen < 2.0 EU/DL (0.2-1.0); WBC,Urine <1 /HPF (0-6)
[2018-04-30] MEDS: ALBUTEROL 2.5 MG/3 ML NEB RESP TX PRN (13:18)
[2018-04-30 13:20] LABS: Folate 22.9 NG/ML (5.4-24.0)
[2018-04-30] MEDS: hydrALAZINE 25 MG TABLET PO SCH ×2 (15:01→21:09)
[2018-04-30] MEDS: FUROSEMIDE 40 MG/4 ML VIAL IV SCH (16:22)
[2018-04-30] MEDS: metFORMIN 500 MG TABLET PO SCH ×2 (16:22→16:31)
[2018-04-30] MEDS: CARVEDILOL 6.25 MG TABLET PO SCH (16:23)
[2018-04-30] MEDS ORDERED: CARVEDILOL 3.125 MG TABLET PO SCH (21:00)
[2018-04-30] MEDS: guaiFENesin 200 MG/10 ML UDCUP PO PRN (21:09)
[2018-04-30] MEDS: LOSARTAN 25 MG TABLET PO SCH (21:09)
[2018-04-30] MEDS: ENOXAPARIN 40 MG/0.4 ML SYRINGE SUBCUT SCH (21:09)
[2018-05-01 04:44] LABS: Basophils % 0.3 % (0.0-0.8); Eosinophils # 0.1 10*3/uL (0.0-0.87); Eosinophils % 1.4 % (0.00-10.9); Hemoglobin 12.5 GM/DL (14.0-18.0); Immature Granulocytes % 0.4 %; Immature Granulocytes Absolute 0.03 #; Lymphocytes # 1.2 10*3/uL (1.4-4.0); Lymphocytes % 16.8 % (21.2-54.2); Mean Corpuscular HGB Conc 30.5 GM/DL (32-36); Mean Corpuscular Hemoglobin 22 PG (27-34); Mean Corpuscular Volume 71.4 FL (87-102); Mean Platelet Volume 10.7 FL (9.6-12.0); Monocytes # 0.8 10*3/uL (0.11-0.8); Monocytes % 11.7 % (1.7-12.7); Neutrophils % 69.4 % (38.7-73.9); Platelet Count 328 T/CUMM (130-400); Red Blood Count 5.74 MC/CUMM (3.8-5.5); Red Cell Distribution Width 16.6 % (9.3-17.3); White Blood Count 7.2 T/CUMM (4-12)
[2018-05-01] MEDS: guaiFENesin 200 MG/10 ML UDCUP PO PRN ×3 (05:06→17:11)
[2018-05-01 05:15] LABS: Albumin 2.8 G/DL (3.4-5.0); Bilirubin,Total 1.1 MG/DL (0.2-1.0); Calcium 8.6 MG/DL (8.5-10.1); Osmolality,Calculated 274.1 MOS/KG (273-304); Potassium 3.2 MMOL/L (3.5-5.1); Risk Ratio 2.51; Total Protein 6.8 G/DL (6.4-8.3); VLDL CHOLESTEROL 14.4 MG/DL
[2018-05-01] MEDS: sitaGLIPtin 25 MG TABLET PO SCH (09:08)
[2018-05-01] MEDS: hydrALAZINE 25 MG TABLET PO SCH ×3 (09:08→20:55)
[2018-05-01] MEDS: LOSARTAN 25 MG TABLET PO SCH ×2 (09:09→20:55)
[2018-05-01] MEDS: ASPIRIN EC 81 MG TABLET PO SCH (09:09)
[2018-05-01] MEDS: CARVEDILOL 6.25 MG TABLET PO SCH ×2 (09:09→16:56)
[2018-05-01] MEDS: PANTOPRAZOLE 40 MG TABLET PO SCH (09:09)
[2018-05-01] MEDS: FUROSEMIDE 40 MG/4 ML VIAL IV SCH ×2 (09:09→17:11)
[2018-05-01] MEDS: INSULIN REGULAR 100 UNIT/ML SUBCUT SCH ×4 (09:10→22:30)
[2018-05-01] MEDS: POTASSIUM CHLORIDE 20 MEQ TABLET PO PRN ×4 (09:43→17:21)
[2018-05-01] MEDS ORDERED: INSULIN GLARGINE 100 UNIT/ML SUBCUT SCH (10:00)
[2018-05-01] MEDS: ALBUTEROL 2.5 MG/3 ML NEB RESP TX PRN (10:30)
[2018-05-01] MEDS: ENOXAPARIN 40 MG/0.4 ML SYRINGE SUBCUT SCH (20:55)
[2018-05-01] MEDS: diphenhydrAMINE CAP 25 MG CAPSULE PO PRN (22:30)
[2018-05-02 04:54] LABS: Basophils % 0.5 % (0.0-0.8); Eosinophils # 0.1 10*3/uL (0.0-0.87); Eosinophils % 2.2 % (0.00-10.9); Hematocrit 41.3 VOL% (42.0-52.0); Hemoglobin 12.6 GM/DL (14.0-18.0); Immature Granulocytes % 0.7 %; Immature Granulocytes Absolute 0.04 #; Lymphocytes # 1.5 10*3/uL (1.4-4.0); Lymphocytes % 24.3 % (21.2-54.2); Mean Corpuscular HGB Conc 30.5 GM/DL (32-36); Mean Corpuscular Hemoglobin 22 PG (27-34); Mean Corpuscular Volume 71.2 FL (87-102); Mean Platelet Volume 10.9 FL (9.6-12.0); Monocytes # 0.9 10*3/uL (0.11-0.8); Monocytes % 14.3 % (1.7-12.7); Neutrophils # 3.5 10*3/uL (1.4-7.4); Platelet Count 331 T/CUMM (130-400); Red Cell Distribution Width 16.5 % (9.3-17.3)
[2018-05-02 05:31] LABS: Potassium 3.9 MMOL/L (3.5-5.1)
[2018-05-02] MEDS: guaiFENesin 200 MG/10 ML UDCUP PO PRN ×2 (08:48→17:05)
[2018-05-02] MEDS: FUROSEMIDE 40 MG/4 ML VIAL IV SCH ×2 (08:48→16:34)
[2018-05-02] MEDS: sitaGLIPtin 25 MG TABLET PO SCH (08:49)
[2018-05-02] MEDS: LOSARTAN 25 MG TABLET PO SCH ×2 (08:49→21:14)
[2018-05-02] MEDS: ASPIRIN EC 81 MG TABLET PO SCH (08:49)
[2018-05-02] MEDS: PANTOPRAZOLE 40 MG TABLET PO SCH (08:49)
[2018-05-02] MEDS: hydrALAZINE 25 MG TABLET PO SCH ×3 (08:49→21:14)
[2018-05-02] MEDS: CARVEDILOL 6.25 MG TABLET PO SCH ×2 (08:49→16:36)
[2018-05-02] MEDS: INSULIN REGULAR 100 UNIT/ML SUBCUT SCH ×4 (08:50→21:23)
[2018-05-02] MEDS ORDERED: INSULIN GLARGINE 100 UNIT/ML SUBCUT SCH (09:00)
[2018-05-02] MEDS ORDERED: ZALEPLON 5 MG CAPSULE PO PRN (09:39)
[2018-05-02] MEDS: predniSONE 20 MG TABLET PO SCH (11:59)
[2018-05-02] MEDS: ALBUTEROL/IPRATROPIUM 3 ML NEB RESP TX SCH (18:47)
[2018-05-02] MEDS: ENOXAPARIN 40 MG/0.4 ML SYRINGE SUBCUT SCH (21:15)
[2018-05-02] MEDS: diphenhydrAMINE CAP 25 MG CAPSULE PO PRN (21:17)
[2018-05-03] MEDS: ALBUTEROL/IPRATROPIUM 3 ML NEB RESP TX SCH ×7 (00:29→23:24)
[2018-05-03] MEDS: INSULIN REGULAR 100 UNIT/ML SUBCUT SCH ×5 (01:01→20:57)
[2018-05-03] MEDS: INSULIN NPH/REGULAR 70/30 100 UNIT/ML SUBCUT SCH ×2 (08:51→16:40)
[2018-05-03] MEDS: metFORMIN 500 MG TABLET PO SCH ×2 (08:51→16:39)
[2018-05-03] MEDS: FUROSEMIDE 40 MG/4 ML VIAL IV SCH ×2 (08:52→16:39)
[2018-05-03] MEDS: LOSARTAN 25 MG TABLET PO SCH ×2 (08:53→20:57)
[2018-05-03] MEDS: ASPIRIN EC 81 MG TABLET PO SCH (08:53)
[2018-05-03] MEDS: sitaGLIPtin 25 MG TABLET PO SCH (08:53)
[2018-05-03] MEDS: CARVEDILOL 6.25 MG TABLET PO SCH ×2 (08:53→16:39)
[2018-05-03] MEDS: PANTOPRAZOLE 40 MG TABLET PO SCH (08:54)
[2018-05-03] MEDS: predniSONE 20 MG TABLET PO SCH (08:54)
[2018-05-03] MEDS: hydrALAZINE 25 MG TABLET PO SCH ×3 (08:54→20:57)
[2018-05-03] MEDS: diphenhydrAMINE CAP 25 MG CAPSULE PO PRN (20:56)
[2018-05-03] MEDS: ENOXAPARIN 40 MG/0.4 ML SYRINGE SUBCUT SCH (20:57)
[2018-05-04 04:02] LABS: Basophils % 0.2 % (0.0-0.8); Eosinophils % 0.2 % (0.00-10.9); Hematocrit 40.9 VOL% (42.0-52.0); Hemoglobin 12.5 GM/DL (14.0-18.0); Immature Granulocytes % 0.5 %; Immature Granulocytes Absolute 0.06 #; Lymphocytes # 2.4 10*3/uL (1.4-4.0); Lymphocytes % 19.9 % (21.2-54.2); Mean Corpuscular HGB Conc 30.6 GM/DL (32-36); Mean Corpuscular Hemoglobin 22 PG (27-34); Mean Corpuscular Volume 72.1 FL (87-102); Mean Platelet Volume 10.3 FL (9.6-12.0); Monocytes # 1.1 10*3/uL (0.11-0.8); Monocytes % 8.7 % (1.7-12.7); Neutrophils # 8.6 10*3/uL (1.4-7.4); Neutrophils % 70.5 % (38.7-73.9); Platelet Count 332 T/CUMM (130-400); Red Blood Count 5.67 MC/CUMM (3.8-5.5); Red Cell Distribution Width 16.3 % (9.3-17.3); White Blood Count 12.2 T/CUMM (4-12)
[2018-05-04] MEDS: ALBUTEROL/IPRATROPIUM 3 ML NEB RESP TX SCH ×3 (04:02→10:38)
[2018-05-04 04:28] LABS: Osmolality,Calculated 282.1 MOS/KG (273-304); Potassium 4.6 MMOL/L (3.5-5.1)
[2018-05-04] MEDS: sitaGLIPtin 25 MG TABLET PO SCH (09:04)
[2018-05-04] MEDS: ASPIRIN EC 81 MG TABLET PO SCH (09:04)
[2018-05-04] MEDS: metFORMIN 500 MG TABLET PO SCH (09:04)
[2018-05-04] MEDS: CARVEDILOL 6.25 MG TABLET PO SCH (09:05)
[2018-05-04] MEDS: predniSONE 20 MG TABLET PO SCH (09:05)
[2018-05-04] MEDS: FUROSEMIDE 40 MG/4 ML VIAL IV SCH (09:05)
[2018-05-04] MEDS: LOSARTAN 25 MG TABLET PO SCH (09:05)
[2018-05-04] MEDS: PANTOPRAZOLE 40 MG TABLET PO SCH (09:05)
[2018-05-04] MEDS: hydrALAZINE 25 MG TABLET PO SCH (09:05)
[2018-05-04] MEDS: INSULIN NPH/REGULAR 70/30 100 UNIT/ML SUBCUT SCH (09:12)
[2018-05-04] MEDS: INSULIN REGULAR 100 UNIT/ML SUBCUT SCH ×2 (09:32→12:02)
[2018-05-04 12:23] VITALS: BP 142/96
== END 2018-05-04 14:10 | disposition home or self-care (01) | DRG 292 ==
LOC: N.ED 05:39 → N.EDINP 09:06 → N.2W 10:13 → N.2E 11:22
PROVIDERS: ADMIT Internal Medicine; ATTEND Internal Medicine

== ENCOUNTER 2018-09-24 02:37 | Observation (INO) ==
[2018-09-24 03:27] LABS: Basophils % 0.2 % (0.0-0.8); Eosinophils % 0.2 % (0.00-10.9); Hematocrit 39.4 VOL% (42.0-52.0); Hemoglobin 11.5 GM/DL (14.0-18.0); Immature Granulocytes % 0.7 %; Immature Granulocytes Absolute 0.06 #; Lymphocytes # 0.6 10*3/uL (1.4-4.0); Mean Corpuscular HGB Conc 29.2 GM/DL (32-36); Mean Corpuscular Hemoglobin 21 PG (27-34); Mean Corpuscular Volume 71.2 FL (87-102); Mean Platelet Volume 11.1 FL (9.6-12.0); Monocytes # 0.6 10*3/uL (0.11-0.8); Neutrophils # 7.7 10*3/uL (1.4-7.4); Neutrophils % 84.9 % (38.7-73.9); Platelet Count 206 T/CUMM (130-400); Red Blood Count 5.53 MC/CUMM (3.8-5.5); Red Cell Distribution Width 20.2 % (9.3-17.3); White Blood Count 9.1 T/CUMM (4-12)
[2018-09-24 03:34] LABS: INR 1.2; PT Patient Result 12.9 SECS; Partial Thromboplastin Time 26.8 SECS (0-40)
[2018-09-24 03:52] LABS: Anisocytosis Slight; Microcytosis 1+; Polychromasia Few
[2018-09-24 03:53] LABS: Hypochromasia Slight
[2018-09-24 03:57] LABS: Bilirubin,Total 2.4 MG/DL (0.2-1.0); Calcium 7.6 MG/DL (8.5-10.1); Osmolality,Calculated 279.5 MOS/KG (273-304); Potassium 3.4 MMOL/L (3.5-5.1); Target Cells Slight; Total Protein 7.1 G/DL (6.4-8.3)
[2018-09-24 03:58] LABS: Platelet Estimate Normal
[2018-09-24] MEDS ORDERED: FUROSEMIDE 40 MG/4 ML VIAL IV STA (04:38)
[2018-09-24] MEDS ORDERED: ALBUTEROL/IPRATROPIUM 3 ML NEB RESP TX STA ×2 (04:45→04:51)
[2018-09-24] MEDS ORDERED: METOPROLOL TARTRATE 5 MG/5 ML VIAL IV STA (05:19)
[2018-09-24] MEDS ORDERED: guaiFENesin/DM ER 600-30 MG TABLET PO PRN (06:20)
[2018-09-24] MEDS ORDERED: DEXTROSE 50% 25 GM/50 ML VIAL IV PRN (06:20)
[2018-09-24] MEDS ORDERED: MAGNESIUM SULF RIDER 4 GM in PREMIX 1 EACH IV PRN ×2 (06:20→09:21)
[2018-09-24] MEDS ORDERED: BISACODYL 5 MG TABLET PO PRN (06:20)
[2018-09-24] MEDS ORDERED: diphenhydrAMINE CAP 25 MG CAPSULE PO PRN (06:20)
[2018-09-24] MEDS ORDERED: hydrALAZINE 20 MG/1 ML VIAL IV PRN (06:20)
[2018-09-24] MEDS ORDERED: ONDANSETRON 4 MG/2 ML VIAL IV PRN (06:20)
[2018-09-24] MEDS ORDERED: GLUCAGON 1 MG VIAL IM PRN (06:20)
[2018-09-24] MEDS ORDERED: NICOTINE 21 MG/24 HR PATCH TRANSDERM PRN (06:20)
[2018-09-24] MEDS ORDERED: MAGNESIUM SULF RIDER 2 GM in PREMIX 1 EACH IV PRN ×2 (06:20→09:21)
[2018-09-24] MEDS ORDERED: MORPHINE 4 MG/1 ML VIAL IV PRN (06:20)
[2018-09-24] MEDS: ALBUTEROL/IPRATROPIUM 3 ML NEB RESP TX SCH ×3 (07:19→19:50)
[2018-09-24] MEDS: ENOXAPARIN 40 MG/0.4 ML SYRINGE SUBCUT SCH (07:30)
[2018-09-24 07:44] LABS: Risk Ratio 3.96
[2018-09-24] MEDS ORDERED: ALBUTEROL 2.5 MG/3 ML NEB RESP TX PRN (07:51)
[2018-09-24] MEDS: INSULIN NPH/REGULAR 70/30 100 UNIT/ML SUBCUT SCH ×2 (08:29→17:17)
[2018-09-24] MEDS: LOSARTAN 50 MG TABLET PO SCH ×2 (08:30→21:51)
[2018-09-24] MEDS: CARVEDILOL 6.25 MG TABLET PO SCH ×2 (08:30→17:16)
[2018-09-24] MEDS: metOLazone 5 MG TABLET PO SCH (08:30)
[2018-09-24] MEDS: PANTOPRAZOLE 40 MG TABLET PO SCH (08:30)
[2018-09-24] MEDS: ASPIRIN EC 81 MG TABLET PO SCH (08:30)
[2018-09-24] MEDS: ACETAMINOPHEN 325 MG TABLET PO PRN ×2 (08:30→21:56)
[2018-09-24 08:55] LABS: Apearance,Urine CLEAR (Clear); Bilirubin,Urine Negative (Negative); Blood, Urine Small mg/dL (Negative); Glucose,Urine (UA) >=500 mg/dL (Negative); Hyaline Casts,Urine 1 /LPF (0-3); Ketones,Urine Negative (Negative); Nitrite,Urine Negative (Negative); Protein,Urine 100 MG/DL; RBC,Urine <1 /HPF (0-4); Urine Color Yellow (Yellow); Urine Specific Gravity 1.009 (1.001-1.035); WBC,Urine <1 /HPF (0-6)
[2018-09-24 09:02] LABS: Barbiturates Screen,Urine Negative (Negative); Benzodiazepines Screen,Urine Negative (Negative); Cannabinoid Screen,Urine Negative (Negative); Opiate Screen,Urine Positive (Negative); Phencyclidine Screen,Urine Negative (Negative)
[2018-09-24 11:23] LABS: Hepatitis A Ab IgM Quant 0.23 Index; Hepatitis A Ab IgM Result Negative (Negative); Hepatitis B Core IgM Quant 0.14 Index; Hepatitis B Core IgM Result Negative (Negative); Hepatitis B Surface Ag Quant < 0.10 Index; Hepatitis B Surface Ag Result Negative (Negative); Hepatitis C Virus Ab Quant 4.49 Index
[2018-09-24] MEDS ORDERED: INSULIN REGULAR 100 UNIT/ML SUBCUT SCH (12:00)
[2018-09-24] MEDS: POTASSIUM CHLORIDE 20 MEQ TABLET PO PRN (12:06)
[2018-09-24] MEDS: POTASSIUM CHLORIDE 20 MEQ TABLET PO SCH ×2 (14:00→17:16)
[2018-09-24] MEDS: FUROSEMIDE 40 MG/4 ML VIAL IV SCH (15:39)
[2018-09-24] MEDS: INSULIN REGULAR 100 UNIT/ML SUBCUT SCH ×2 (17:21→21:52)
[2018-09-25] MEDS: ALBUTEROL/IPRATROPIUM 3 ML NEB RESP TX SCH ×4 (00:47→17:05)
[2018-09-25 04:53] LABS: Osmolality,Calculated 272.2 MOS/KG (273-304); Potassium 3.3 MMOL/L (3.5-5.1)
[2018-09-25 04:58] LABS: Albumin 2.8 G/DL (3.4-5.0); Bilirubin,Total 2.3 MG/DL (0.2-1.0); Osmolality,Calculated 273.2 MOS/KG (273-304); Potassium 3.6 MMOL/L (3.5-5.1)
[2018-09-25 05:59] LABS: Basophils % 0.2 % (0.0-0.8); Eosinophils # 0.1 10*3/uL (0.0-0.87); Hematocrit 38.4 VOL% (42.0-52.0); Hemoglobin 11.4 GM/DL (14.0-18.0); Immature Granulocytes % 0.6 %; Immature Granulocytes Absolute 0.05 #; Lymphocytes # 1.3 10*3/uL (1.4-4.0); Lymphocytes % 15.3 % (21.2-54.2); Mean Corpuscular HGB Conc 29.7 GM/DL (32-36); Mean Corpuscular Hemoglobin 21 PG (27-34); Mean Corpuscular Volume 70.6 FL (87-102); Monocytes % 11.7 % (1.7-12.7); Neutrophils # 5.9 10*3/uL (1.4-7.4); Neutrophils % 71.2 % (38.7-73.9); Platelet Count 208 T/CUMM (130-400); Red Blood Count 5.44 MC/CUMM (3.8-5.5); Red Cell Distribution Width 20.6 % (9.3-17.3); White Blood Count 8.3 T/CUMM (4-12)
[2018-09-25 06:07] LABS: Hypochromasia 1+; Microcytosis Slight; Ovalocytes Slight; Platelet Estimate Adequate
[2018-09-25] MEDS: ENOXAPARIN 40 MG/0.4 ML SYRINGE SUBCUT SCH (06:39)
[2018-09-25] MEDS: CARVEDILOL 6.25 MG TABLET PO SCH ×2 (09:13→16:54)
[2018-09-25] MEDS: INSULIN REGULAR 100 UNIT/ML SUBCUT SCH ×3 (09:13→16:22)
[2018-09-25] MEDS: PANTOPRAZOLE 40 MG TABLET PO SCH (09:14)
[2018-09-25] MEDS: metOLazone 5 MG TABLET PO SCH (09:14)
[2018-09-25] MEDS: LOSARTAN 50 MG TABLET PO SCH (09:14)
[2018-09-25] MEDS: ASPIRIN EC 81 MG TABLET PO SCH (09:14)
[2018-09-25] MEDS: INSULIN NPH/REGULAR 70/30 100 UNIT/ML SUBCUT SCH ×2 (12:13→16:54)
[2018-09-25] MEDS: FUROSEMIDE 40 MG/4 ML VIAL IV SCH (12:15)
[2018-09-25 12:32] VITALS: BP 121/86
[2018-09-25] MEDS ORDERED: FUROSEMIDE 40 MG TABLET PO SCH (16:00)
[2018-09-25] MEDS: POTASSIUM CHLORIDE 20 MEQ TABLET PO PRN (16:52)
[2018-09-26] MEDS ORDERED: FUROSEMIDE 40 MG TABLET PO SCH (09:00)
== END 2018-09-25 17:38 | disposition home or self-care (01) ==
LOC: SUATTDRO → N.EDINP 02:37 → N.ED 02:37 → SUATTDRO 06:20 → N.TELEN 07:43
PROVIDERS: ADMIT Internal Medicine Cardiovascular Disease; ATTEND Hospitalist